=== PATIENT | female | born 1960 | race African-American/Black ===

== ENCOUNTER 2017-12-08 04:57 | Inpatient (IN) ==
[2017-12-08] MEDS ORDERED: VANCOMYCIN 1,000 MG VIAL ONE (05:59)
[2017-12-08] MEDS ORDERED: ceFAZolin 1,000 MG VIAL ONE (05:59)
[2017-12-08] MEDS ORDERED: ACETAMINOPHEN 500 MG TABLET PO ONE (06:00)
[2017-12-08] MEDS ORDERED: GABAPENTIN 400 MG CAPSULE PO ONE (06:00)
[2017-12-08] MEDS ORDERED: DIAZEPAM 5 MG TABLET PO ONE (06:00)
[2017-12-08] MEDS ORDERED: FAMOTIDINE 20 MG TABLET PO ONE (06:00)
[2017-12-08] MEDS ORDERED: VANCOMYCIN INJ 1,000 MG in SODIUM CHLORIDE 0.9% 250 ML IV ONE (06:00)
[2017-12-08] MEDS ORDERED: ceFAZolin 1,000 MG in SYRINGE 1 EACH IV ONE (06:00)
[2017-12-08] MEDS ORDERED: ACETAMINOPHEN 500 MG TABLET ONE (06:06)
[2017-12-08] MEDS ORDERED: DIAZEPAM 5 MG TABLET ONE (06:06)
[2017-12-08] MEDS ORDERED: FAMOTIDINE 20 MG TABLET ONE (06:06)
[2017-12-08] MEDS ORDERED: GABAPENTIN 400 MG CAPSULE ONE (06:06)
[2017-12-08] MEDS ORDERED: ROPIVACAINE 0.5% 30 ML VIAL ONE (06:23)
[2017-12-08] MEDS ORDERED: TRANEXAMIC ACID 1,000 MG/10 ML VIAL IV ONE (06:36)
[2017-12-08] MEDS: LACTATED RINGERS 1,000 ML IV SCH (06:46)
[2017-12-08] MEDS ORDERED: MAGNESIUM HYDROXIDE SUSP 30 ML UDCUP PO PRN (07:07)
[2017-12-08] MEDS ORDERED: TEMAZEPAM 7.5 MG CAPSULE PO PRN (07:07)
[2017-12-08] MEDS ORDERED: LACTULOSE 20 GM/30 ML UDCUP PO PRN (07:07)
[2017-12-08] MEDS ORDERED: NALOXONE 0.4 MG/ML VIAL IV PRN (07:07)
[2017-12-08] MEDS ORDERED: ONDANSETRON 4 MG/2 ML VIAL IV PRN (07:07)
[2017-12-08] MEDS ORDERED: PROMETHAZINE 25 MG/1 ML VIAL IM PRN (07:07)
[2017-12-08] MEDS ORDERED: diphenhydrAMINE CAP 25 MG CAPSULE PO PRN (07:07)
[2017-12-08] MEDS ORDERED: BISACODYL 10 MG SUPP RECTAL PRN (07:07)
[2017-12-08] MEDS ORDERED: MORPHINE 10 MG/1 ML VIAL IV PRN ×2 (07:07→10:29)
[2017-12-08] MEDS ORDERED: MAGNESIUM OXIDE PO SCH (09:00)
[2017-12-08] MEDS ORDERED: ZINC SULFATE PO SCH (09:00)
[2017-12-08] MEDS ORDERED: CALCIUM CARBONATE PO SCH (09:00)
[2017-12-08] MEDS ORDERED: SEVOFLURANE 1 UNIT/15 MINUTE INH ONE (09:14)
[2017-12-08] MEDS ORDERED: MIDAZOLAM 2 MG/2 ML VIAL ONE (09:14)
[2017-12-08] MEDS ORDERED: PROPOFOL 200 MG/20 ML VIAL IV ONE (09:14)
[2017-12-08] MEDS ORDERED: ACETAMINOPHEN 1,000 MG/100 ML VIAL IV ONE (09:15)
[2017-12-08] MEDS ORDERED: GLYCOPYRROLATE 0.4 MG/2 ML VIAL ONE (09:15)
[2017-12-08] MEDS ORDERED: ONDANSETRON 4 MG/2 ML VIAL ONE (09:15)
[2017-12-08] MEDS ORDERED: METOPROLOL TARTRATE 5 MG/5 ML VIAL IV ONE (09:15)
[2017-12-08] MEDS ORDERED: ROCURONIUM 100 MG/10 ML VIAL IV ONE (09:15)
[2017-12-08] MEDS ORDERED: NEOSTIGMINE 10 MG/10 ML VIAL ONE (09:15)
[2017-12-08] MEDS ORDERED: hydrALAZINE 20 MG/1 ML VIAL ONE (09:15)
[2017-12-08] MEDS ORDERED: PHENYLEPHRINE 1 MG/10 ML SYRINGE IV ONE (09:15)
[2017-12-08] MEDS: DOCUSATE SODIUM 100 MG CAPSULE PO SCH ×2 (11:38→20:45)
[2017-12-08] MEDS: TOLTERODINE LA 4 MG CAPSULE PO SCH (11:38)
[2017-12-08] MEDS: POTASSIUM CHLORIDE 10 MEQ TABLET PO SCH (11:38)
[2017-12-08] MEDS: MORPHINE PCA 30 MG/30 ML SYRINGE IV SCH (11:39)
[2017-12-08] MEDS: PANTOPRAZOLE 40 MG TABLET PO SCH (11:39)
[2017-12-08 11:41] LABS: Calcium 8.7 MG/DL (8.5-10.1); Osmolality,Calculated 279.4 MOS/KG (273-304); Potassium 3.4 MMOL/L (3.5-5.1)
[2017-12-08 11:49] LABS: Basophils # 0.1 10*3/uL (0.0-0.2); Basophils % 0.5 % (0.0-0.8); Eosinophils # 0.5 10*3/uL (0.0-0.87); Eosinophils % 3.3 % (0.00-10.9); Hematocrit 30.8 VOL% (35.7-47.0); Hemoglobin 8.6 GM/DL (12.0-16.0); Immature Granulocytes % 0.7 %; Immature Granulocytes Absolute 0.11 #; Lymphocytes % 13.4 % (21.3-54.2); Mean Corpuscular HGB Conc 27.9 GM/DL (32-36); Mean Corpuscular Hemoglobin 20 PG (27-34); Mean Corpuscular Volume 70.6 FL (87-102); Monocytes # 0.7 10*3/uL (0.11-0.8); Monocytes % 4.8 % (1.7-12.7); Neutrophils # 11.8 10*3/uL (1.4-7.4); Neutrophils % 77.3 % (38.7-73.9); Platelet Count 203 T/CUMM (130-400); Red Blood Count 4.36 MC/CUMM (3.8-5.5); Red Cell Distribution Width 22.7 % (9.3-17.3); White Blood Count 15.3 T/CUMM (4-12)
[2017-12-08 12:06] LABS: Giant Platelets Few; Hypochromasia 1+; Ovalocytes Slight; Platelet Estimate Adequate
[2017-12-08 12:07] LABS: Macrocytosis Slight; Polychromasia Slight
[2017-12-08] MEDS: VALSARTAN/HCTZ 160-12.5 MG TABLET PO SCH ×2 (12:11→13:28)
[2017-12-08] MEDS: ceFAZolin 2,000 MG in PREMIX 1 EACH IV SCH ×2 (15:05→18:30)
[2017-12-08] MEDS: FONDAPARINUX 2.5 MG/0.5 ML SYRINGE SUBCUT SCH (20:44)
[2017-12-09 06:01] LABS: Basophils % 0.3 % (0.0-0.8); Eosinophils # 0.1 10*3/uL (0.0-0.87); Eosinophils % 0.4 % (0.00-10.9); Hematocrit 28.6 VOL% (35.7-47.0); Hemoglobin 8.2 GM/DL (12.0-16.0); Immature Granulocytes % 0.5 %; Immature Granulocytes Absolute 0.06 #; Lymphocytes # 1.4 10*3/uL (1.4-4.0); Lymphocytes % 11.9 % (21.3-54.2); Mean Corpuscular HGB Conc 28.7 GM/DL (32-36); Mean Corpuscular Hemoglobin 20 PG (27-34); Mean Corpuscular Volume 69.2 FL (87-102); Monocytes # 0.9 10*3/uL (0.11-0.8); Monocytes % 7.4 % (1.7-12.7); Neutrophils # 9.3 10*3/uL (1.4-7.4); Neutrophils % 79.5 % (38.7-73.9); Platelet Count 183 T/CUMM (130-400); Red Blood Count 4.13 MC/CUMM (3.8-5.5); Red Cell Distribution Width 23.5 % (9.3-17.3); White Blood Count 11.7 T/CUMM (4-12)
[2017-12-09 06:21] LABS: Giant Platelets Few; Hypochromasia 1+; Macrocytosis Slight; Ovalocytes Slight; Platelet Estimate Normal
[2017-12-09 06:26] LABS: Calcium 8.6 MG/DL (8.5-10.1); Osmolality,Calculated 274.7 MOS/KG (273-304); Potassium 3.5 MMOL/L (3.5-5.1)
[2017-12-09] MEDS: LACTATED RINGERS 1,000 ML IV SCH (10:03)
[2017-12-09] MEDS: POTASSIUM CHLORIDE 10 MEQ TABLET PO SCH (10:04)
[2017-12-09] MEDS: TOLTERODINE LA 4 MG CAPSULE PO SCH (10:04)
[2017-12-09] MEDS: DOCUSATE SODIUM 100 MG CAPSULE PO SCH ×2 (10:04→20:20)
[2017-12-09] MEDS: VALSARTAN/HCTZ 160-12.5 MG TABLET PO SCH (10:04)
[2017-12-09] MEDS: PANTOPRAZOLE 40 MG TABLET PO SCH (10:04)
[2017-12-09] MEDS: MORPHINE PCA 30 MG/30 ML SYRINGE IV SCH (10:06)
[2017-12-09] MEDS: FONDAPARINUX 2.5 MG/0.5 ML SYRINGE SUBCUT SCH (20:20)
[2017-12-10 06:20] LABS: Basophils % 0.2 % (0.0-0.8); Eosinophils # 0.2 10*3/uL (0.0-0.87); Eosinophils % 1.1 % (0.00-10.9); Hematocrit 29.1 VOL% (35.7-47.0); Hemoglobin 8.5 GM/DL (12.0-16.0); Immature Granulocytes % 0.6 %; Immature Granulocytes Absolute 0.08 #; Lymphocytes # 2.1 10*3/uL (1.4-4.0); Lymphocytes % 14.6 % (21.3-54.2); Mean Corpuscular HGB Conc 29.2 GM/DL (32-36); Mean Corpuscular Hemoglobin 20 PG (27-34); Neutrophils # 10.8 10*3/uL (1.4-7.4); Neutrophils % 76.5 % (38.7-73.9); Platelet Count 187 T/CUMM (130-400); Red Blood Count 4.22 MC/CUMM (3.8-5.5); Red Cell Distribution Width 24.5 % (9.3-17.3); White Blood Count 14.1 T/CUMM (4-12)
[2017-12-10 06:36] LABS: Hypochromasia 1+
[2017-12-10] MEDS: VALSARTAN/HCTZ 160-12.5 MG TABLET PO SCH (09:23)
[2017-12-10] MEDS: TOLTERODINE LA 4 MG CAPSULE PO SCH (09:23)
[2017-12-10] MEDS: POTASSIUM CHLORIDE 10 MEQ TABLET PO SCH (09:23)
[2017-12-10] MEDS: PANTOPRAZOLE 40 MG TABLET PO SCH (09:23)
[2017-12-10] MEDS: DOCUSATE SODIUM 100 MG CAPSULE PO SCH (09:23)
[2017-12-10] MEDS ORDERED: IRON (CARBONYL) 45 MG TABLET PO SCH (09:30)
[2017-12-10] MEDS: LACTATED RINGERS 1,000 ML IV SCH (09:34)
[2017-12-10] MEDS: MORPHINE PCA 30 MG/30 ML SYRINGE IV SCH (09:35)
[2017-12-10 14:43] VITALS: BP 152/74
== END 2017-12-10 15:36 | disposition home health service (06) | DRG 470 ==
LOC: N.OR 04:57 → N.SDSINP 05:02 → INTOOBSV 07:07 → N.3E 10:07
PROVIDERS: ADMIT Orthopaedic Surgery; ATTEND Orthopaedic Surgery

== ENCOUNTER 2022-04-13 05:11 | Inpatient (IN) ==
[2022-04-13] MEDS ORDERED: VANCOMYCIN INJ 1,000 MG in SODIUM CHLORIDE 0.9% 250 ML IV ONE (06:30)
[2022-04-13] MEDS ORDERED: LIDOCAINE 2% 5 ML VIAL ONE (06:34)
[2022-04-13] MEDS ORDERED: fentaNYL 100 MCG/2 ML VIAL ONE ×2 (06:34→07:52)
[2022-04-13] MEDS ORDERED: propofoL 200 MG/20 ML VIAL IV ONE (06:34)
[2022-04-13] MEDS ORDERED: ONDANSETRON 4 MG/2 ML VIAL ONE (06:34)
[2022-04-13] MEDS ORDERED: MIDAZOLAM 2 MG/2 ML VIAL ONE (06:34)
[2022-04-13] MEDS ORDERED: SEVOFLURANE 1 UNIT/15 MINUTE INH ONE ×2 (06:34→09:17)
[2022-04-13] MEDS ORDERED: SUCCINYLCHOLINE 200 MG/10 ML VIAL ONE (06:35)
[2022-04-13] MEDS ORDERED: ROPIVACAINE 0.5% 30 ML VIAL ONE ×2 (06:44→09:12)
[2022-04-13] MEDS ORDERED: DEXAMETHASONE 4 MG/1 ML VIAL ONE (06:44)
[2022-04-13] MEDS ORDERED: LIDOCAINE 1% 5 ML VIAL ONE (06:44)
[2022-04-13 06:55] LABS: PT Patient Result 10.7 SECS (10.1-12.1); Partial Thromboplastin Time 25.8 SECS (23.7-32.9)
[2022-04-13] MEDS ORDERED: LACTATED RINGERS 1,000 ML IV SCH (07:00)
[2022-04-13] MEDS ORDERED: MAGNESIUM HYDROXIDE SUSP 30 ML UDCUP PO PRN (07:09)
[2022-04-13] MEDS ORDERED: TEMAZEPAM 7.5 MG CAPSULE PO PRN (07:10)
[2022-04-13] MEDS ORDERED: LACTULOSE 20 GM/30 ML UDCUP PO PRN (07:10)
[2022-04-13] MEDS ORDERED: PROMETHAZINE 25 MG/1 ML VIAL IM PRN (07:10)
[2022-04-13] MEDS ORDERED: diphenhydrAMINE CAP 25 MG CAPSULE PO PRN (07:10)
[2022-04-13] MEDS ORDERED: MORPHINE 2 MG/1 ML SYRINGE IV PRN ×2 (07:10→10:12)
[2022-04-13] MEDS ORDERED: BISACODYL 10 MG SUPP RECTAL PRN (07:10)
[2022-04-13] MEDS ORDERED: ONDANSETRON 4 MG/2 ML VIAL IV PRN ×2 (07:10→09:38)
[2022-04-13] MEDS ORDERED: TRANEXAMIC ACID 1,000 MG/10 ML VIAL ONE (07:37)
[2022-04-13] MEDS ORDERED: ACETAMINOPHEN INJ 1,000 MG/100 ML VIAL IV ONE (07:37)
[2022-04-13] MEDS ORDERED: KETOROLAC 30 MG/1 ML VIAL ONE ×2 (07:37→09:17)
[2022-04-13] MEDS ORDERED: GLYCOPYRROLATE 0.4 MG/2 ML VIAL ONE (08:21)
[2022-04-13] MEDS ORDERED: NEOSTIGMINE 10 MG/10 ML VIAL ONE (08:21)
[2022-04-13] MEDS ORDERED: hydrALAZINE 20 MG/1 ML VIAL ONE (08:32)
[2022-04-13] MEDS ORDERED: ESMOLOL 100 MG/10 ML VIAL IV ONE (08:33)
[2022-04-13] MEDS ORDERED: NON-FORMULARY MEDICATION (Turmeric 400 mg Capsule) PO SCH (09:00)
[2022-04-13] MEDS ORDERED: hydrALAZINE 20 MG/1 ML VIAL IV ONE (09:12)
[2022-04-13] MEDS ORDERED: HYDROmorphone 1 MG/1 ML SYRINGE IV PRN (09:38)
[2022-04-13] MEDS ORDERED: HYDROmorphone 1 MG/1 ML SYRINGE ONE (09:38)
[2022-04-13] MEDS: LOSARTAN/HCTZ 50-12.5 MG TABLET PO SCH (11:16)
[2022-04-13] MEDS: TOLTERODINE LA 4 MG CAPSULE PO SCH (12:24)
[2022-04-13] MEDS ORDERED: cloNIDine 0.1 MG TABLET PO PRN (15:54)
[2022-04-13] MEDS: METOPROLOL TARTRATE 50 MG TABLET PO SCH (20:58)
[2022-04-13] MEDS: DOCUSATE SODIUM 100 MG CAPSULE PO SCH (20:58)
[2022-04-13] MEDS: FONDAPARINUX 2.5 MG/0.5 ML SYRINGE SUBCUT SCH (20:59)
[2022-04-14 06:17] LABS: Basophils % 0.3 % (0.0-0.8); Eosinophils # 0.1 10*3/uL (0.0-0.87); Eosinophils % 0.7 % (0.00-10.9); Hematocrit 36.5 VOL% (35.7-47.0); Hemoglobin 11.9 GM/DL (12.0-16.0); Immature Granulocytes % 0.4 %; Immature Granulocytes Absolute 0.04 #; Lymphocytes # 1.8 10*3/uL (1.4-4.0); Lymphocytes % 17.3 % (21.3-54.2); Mean Corpuscular HGB Conc 32.6 GM/DL (32-36); Mean Platelet Volume 12.5 FL (9.6-12.0); Monocytes # 0.8 10*3/uL (0.11-0.8); Monocytes % 7.9 % (1.7-12.7); Neutrophils % 73.4 % (38.7-73.9); Platelet Count 182 T/CUMM (130-400); Red Cell Distribution Width 13.2 % (9.3-17.3); White Blood Count 10.1 T/CUMM (4-12)
[2022-04-14 06:35] LABS: Calcium 8.7 MG/DL (8.5-10.1); Osmolality,Calculated 274.8 MOS/KG (273-304); Potassium 3.4 MMOL/L (3.5-5.1)
[2022-04-14] MEDS ORDERED: ACETAMINOPHEN 325 MG TABLET PO PRN (07:11)
[2022-04-14] MEDS: LOSARTAN/HCTZ 50-12.5 MG TABLET PO SCH (08:23)
[2022-04-14] MEDS: FERROUS SULFATE 325 MG TABLET PO SCH (08:23)
[2022-04-14] MEDS: ASCORBIC ACID 500 MG TABLET PO SCH (08:23)
[2022-04-14] MEDS: METOPROLOL TARTRATE 50 MG TABLET PO SCH ×2 (08:23→20:14)
[2022-04-14] MEDS: DOCUSATE SODIUM 100 MG CAPSULE PO SCH ×2 (08:23→20:14)
[2022-04-14] MEDS: TOLTERODINE LA 4 MG CAPSULE PO SCH (08:23)
[2022-04-14] MEDS: POTASSIUM CHLORIDE 20 MEQ TABLET PO PRN ×3 (18:45→22:26)
[2022-04-14] MEDS: FONDAPARINUX 2.5 MG/0.5 ML SYRINGE SUBCUT SCH (20:14)
[2022-04-15] MEDS: FERROUS SULFATE 325 MG TABLET PO SCH (08:16)
[2022-04-15] MEDS: LOSARTAN/HCTZ 50-12.5 MG TABLET PO SCH (08:16)
[2022-04-15] MEDS: METOPROLOL TARTRATE 50 MG TABLET PO SCH (08:16)
[2022-04-15] MEDS: TOLTERODINE LA 4 MG CAPSULE PO SCH (08:16)
[2022-04-15] MEDS: ASCORBIC ACID 500 MG TABLET PO SCH (08:17)
[2022-04-15] MEDS: DOCUSATE SODIUM 100 MG CAPSULE PO SCH (08:17)
[2022-04-15 12:05] VITALS: BP 154/88
[2022-04-15] MEDS: FONDAPARINUX 2.5 MG/0.5 ML SYRINGE SUBCUT SCH (12:37)
== END 2022-04-15 13:45 | disposition home health service (06) | DRG 470 ==
LOC: N.OR 05:11 → N.SDSINP 05:12 → N.3E 10:06
PROVIDERS: ADMIT Orthopaedic Surgery; ATTEND Orthopaedic Surgery